=== PATIENT | female | born 1980 | race Asian ===

== ENCOUNTER → 2020-06-12 09:07 | Outpatient (CLI) | payer OTHER, SELFPAY ==
[2020-06-12 09:37] LABS: Bacteria Urine None Seen; RBC Urine None Seen (0-5/HPF)
[2020-06-12 10:40] LABS: Hemoglobin A1C% w Est Avg Glu 5.3 % (4.0-6.0)
[2020-06-12 10:59] LABS: Appearance Urine UA CLEAR; Bilirubin Urine UA NEGATIVE (NEGATIVE); Color Urine UA YELLOW; Glucose Urine UA NEGATIVE (Negative); Ketones Urine UA NEGATIVE (NEGATIVE); Leukocyte Esterase Urine UA TRACE (NEGATIVE); Nitrite Urine UA NEGATIVE (Negative); Occult Blood Urine UA NEGATIVE (Negative); Protein Urine UA NEGATIVE (Negative); Specific Gravity Urine UA 1.015 (1.000-1.035); Urobilinogen Urine UA 0.2 E.U./dL (0.2)
[2020-06-12 11:02] LABS: Alanine Aminotransferase 11 IU/L (<35); Albumin 4.5 g/dL (3.5-5.0); Albumin Globulin Ratio 1.5 (1.0-2.8); Alkaline Phosphatase 46 U/L (38-126); Aspartate Aminotransferase 24 IU/L (14-36); BUN Creatinine Ratio 14.5 (6-22); Blood Urea Nitrogen 8 mg/dL (7-17); Calcium 9.3 mg/dL (8.4-10.2); Carbon Dioxide 25 mmol/L (22-32); Chloride 107 mmol/L (98-107); Cholesterol 183 mg/dL (140-199); Estimated Glomerular Filt Rate > 60.0 mL/min (>60); Glucose 84 mg/dL (70-100); HDL Cholesterol 63 mg/dL (40-60); HEMOLYSIS < 15 (0-50); LDL Cholesterol Calculated 105 mg/dL (<100); Sodium 139 mmol/L (137-145); Total Protein 7.5 g/dL (6.3-8.2); Triglycerides 77 mg/dL (35-150)
[2020-06-12 11:08] LABS: pH Urine UA 6.5 (4.5-8.0)
[2020-06-12 11:09] LABS: Culture Indicated Urine Cult Not Indicated; Mucus Urine 1+ (Negative); Squamous Epithelial Cell Urine 5-10 /HPF (0-5/HPF); WBC Urine 0-1/HPF (0-5/HPF)
== END ==
PROVIDERS: PCP Family Medicine; Referring Provider Family Medicine; Visit Provider Family Medicine
DX: Z00.01 Encounter for general adult medical examination with abnormal findings (principal); N94.6 Dysmenorrhea, unspecified
CPT/HCPCS: 36415; 80053; 80061; 81001; 83036

== ENCOUNTER → 2020-06-21 14:08 | Outpatient (CLI) | payer OTHER, SELFPAY ==
[2020-06-21 14:12] LABS: Bacteria Urine None Seen
[2020-06-21 15:21] LABS: Appearance Urine UA CLEAR; Bilirubin Urine UA NEGATIVE (NEGATIVE); Color Urine UA YELLOW; Glucose Urine UA NEGATIVE (Negative); Ketones Urine UA NEGATIVE (NEGATIVE); Leukocyte Esterase Urine UA NEGATIVE (NEGATIVE); Nitrite Urine UA NEGATIVE (Negative); Occult Blood Urine UA NEGATIVE (Negative); Protein Urine UA NEGATIVE (Negative); Specific Gravity Urine UA <=1.005 (1.000-1.035); Urobilinogen Urine UA 0.2 E.U./dL (0.2)
[2020-06-21 15:48] LABS: pH Urine UA 5.5 (4.5-8.0)
[2020-06-21 15:54] LABS: Culture Indicated Urine Cult Not Indicated; RBC Urine 0-1/HPF (0-5/HPF); Squamous Epithelial Cell Urine 0-1 /HPF (0-5/HPF); WBC Urine 0-1/HPF (0-5/HPF)
[2020-06-21 17:42] LABS: Bilirubin Total 0.7 mg/dL (0.2-1.3)
== END ==
PROVIDERS: PCP Family Medicine; Referring Provider Family Medicine; Visit Provider Family Medicine
DX: N94.6 Dysmenorrhea, unspecified (principal)
CPT/HCPCS: 36415; 81001; 82247; 82248

== ENCOUNTER → 2020-10-16 11:09 | Outpatient (CLI) | payer OTHER, SELFPAY ==
--- NOTE | 2020-10-16 11:10 | DI.US.S_ITS ---
PROCEDURE: US OB <= 14 WEEKS FETUS INDICATIONS: Initial US for Dating and Viability please OUTSIDE/PRIOR DATING DATA: Last menstrual period (LMP): 08/14/2020 LMP-based estimated date of delivery (GUY): 05/21/2021. First dating scan (date and location): 10/16/2020. Estimated date of delivery (GUY) from first dating scan: 05/25/2021. TECHNIQUE: Real-time scanning was performed of the fetus and maternal pelvic organs, with image documentation. Endovaginal scanning was also performed to better visualize the fetus and maternal ovaries. COMPARISON: None. FINDINGS: Embryo: [place]-rump length measures 1.9 cm corresponding to 8 weeks 3 days. Heart rate measures 175 beats per minute. Measurement variability in dating: +/- 4 weeks by LMP, +/- 7 days by mean sac diameter (use before 6 weeks gestation if crown-rump length not able to be measured), +/- 5 days by crown-rump length (up to 8 weeks 6 days gestation), +/- 7 days by crown-rump length (up to 13 weeks 6 days gestation). Maternal organs: Ovaries within normal limits . IMPRESSION: 8 week 3 day single living IUP. Dictated by: Tye Veliz RRA Interpreted: Martin Jones MD on 10/16/2020 at 17:13 Transcribed by: ADONIS on 10/16/2020 at 17:14 Approved by: Martin Jones M.D. on 10/16/2020 at 17:28
== END ==
PROVIDERS: PCP Family Medicine; Referring Provider Family Medicine; Visit Provider Family Medicine
DX: Z34.01 Encounter for supervision of normal first pregnancy, first trimester (principal); Z3A.08 8 weeks gestation of pregnancy
CPT/HCPCS: 76801

== ENCOUNTER → 2020-11-06 13:55 | Outpatient (CLI) | payer OTHER, SELFPAY ==
[2020-11-06 14:28] LABS: Add Manual Diff / Slide Review NO; Basophils Absolute Auto 0 /uL (0-100); Basophils Percent Auto 0.2 % (0-2); Eosinophils Absolute Auto 200 /uL (0-450); Eosinophils Percent Auto 2.7 % (2-4); Hematocrit 34.8 % (36-46); Hemoglobin 12.2 g/dL (12.0-16.0); Lymphocytes Absolute Auto 1800 /uL (1100-4500); Lymphocytes Percent Auto 25.1 % (25-40); Mean Corpuscular HGB Conc 35.1 % (30-36); Mean Corpuscular Hemoglobin 31.4 PG (26-34); Mean Corpuscular Volume 89.3 fL (80-100); Monocytes Absolute Auto 600 /uL (0-900); Monocytes Percent Auto 8.7 % (3-14); Neutrophils Absolute Auto 4600 /uL (1500-7000); Neutrophils Percent Auto 63.3 % (50-75); Platelet Count 310 X10^3/uL (150-400); Red Cell Distribution Width 12.3 % (11.6-14.8); White Blood Cell Count 7.3 X10^3/uL (4.5-11.0)
[2020-11-06 16:33] LABS: Appearance Urine UA CLEAR; Bilirubin Urine UA NEGATIVE (NEGATIVE); Color Urine UA YELLOW; Glucose Urine UA NEGATIVE (Negative); Ketones Urine UA NEGATIVE (NEGATIVE); Leukocyte Esterase Urine UA NEGATIVE (NEGATIVE); Nitrite Urine UA NEGATIVE (Negative); Occult Blood Urine UA NEGATIVE (Negative); Protein Urine UA NEGATIVE (Negative); Urobilinogen Urine UA 0.2 E.U./dL (0.2)
[2020-11-07 07:28] LABS: RPR Screen Non Reactive (Non Reactive)
[2020-11-07 08:42] LABS: Varicella IgG Antibody 385 index (Immune >165)
[2020-11-08 20:57] LABS: Hepatitis B Surface Antigen NEGATIVE s/c (NEGATIVE); Rubella Antibody IgG 48.5 IU/mL (>15)
[2020-11-08 21:09] LABS: HIV 1 & 2 Ab/Ag 4th Gen Combo NEGATIVE (NEGATIVE); Hep C Virus Ab w/Reflex Quant NEGATIVE s/c (NEGATIVE)
== END ==
PROVIDERS: PCP Family Medicine; Referring Provider Family Medicine; Visit Provider Family Medicine
DX: Z3A.11 11 weeks gestation of pregnancy (principal); O09.519 Supervision of elderly primigravida, unspecified trimester
CPT/HCPCS: 36415; 80055; 81003; 81420; 86787; 86803; 86850; 86900; 86901; 87077; 87086; 87389

== ENCOUNTER → 2020-12-13 15:18 | Outpatient (CLI) | payer OTHER, MEDICAID, SELFPAY ==
[2020-12-15 19:18] LABS: AFP Value 39.6 ng/mL (.); Gest Age on Col Date 17.3 weeks (.); Gestational Age Ultrasound (.); Insulin Dep Diabetes No (.); OSBR Risk 1IN 10000 (.); Results Report (.); Test Results *Screen Negative* (.)
== END ==
PROVIDERS: PCP Family Medicine; Referring Provider Family Medicine; Visit Provider Family Medicine
DX: Z34.90 Encounter for supervision of normal pregnancy, unspecified, unspecified trimester (principal); Z3A.17 17 weeks gestation of pregnancy
CPT/HCPCS: 36415; 82105

== ENCOUNTER → 2021-01-03 14:07 | Outpatient (CLI) | payer OTHER, MEDICAID, SELFPAY ==
--- NOTE | 2021-01-03 14:08 | DI.US.S_ITS ---
PROCEDURE: US OB >= 14 WEEKS FETUS INDICATIONS: ANATOMY SCAN OUTSIDE/PRIOR DATING DATA: Last menstrual period (LMP): 08/14/2020 . LMP-based estimated date of delivery (GUY): 05/21/2021 . First dating scan (date and location): 10/16/2020 . Estimated date of delivery (GUY) from first dating scan: 05/25/2021 . TECHNIQUE: Real-time scanning was performed of the fetus, with image documentation and biometric measurements. Endovaginal scanning: None COMPARISON: None. FINDINGS: General: A single living intrauterine gestation is present. Presentation: Variable, breech. Placenta: Placental position is anterior , without previa. Amniotic fluid index: 15.6 cm, normal range is 5-24 cm. heart rate: 155 beats per minute. Maternal cervical canal: 3.1 cm long. Normal lower limit is 2.5 cm. biometrics: Biparietal diameter: 4.7 cm, 20 week 2 day Head circumference: 17.3 cm, 19 week 6 day Abdominal circumference: 14.1 cm, 19 week 3 day Femur length: 3.1 cm, 19 week 3 day Estimated gestational age from initial scan: 19 week 5 day Composite gestational age from present scan: 19 week 5 day Estimated weight and percentile: 297, 34th percentile Measurement variability for biometric dating: +/- 7 days from 14 weeks to 15 weeks 6 days gestation, +/- 10 days from 16 weeks to 21 weeks 6 days gestation, +/- 2 weeks from 22 weeks to 27 weeks 6 days gestation, +/- 3 weeks for 28 weeks gestation or later. weight reference: 4500 g or EFW >90/95% is considered macrosomia or large for gestational age. EFW <10% is small for gestational age. EFW 5% or less is considered intra-uterine growth restriction. Anatomic survey: Neuro: Ventricles are non-dilated at less than 10 mm. Cisterna magna is normal at 3-11 mm. Cerebellum is normal in size and morphology. Nuchal skin fold: Normal at less than 6 mm between 14-21 weeks gestational age. Face: Nose and lips, facial profile are normal. Spine: No evidence for spina bifida. Heart: 4-chambered heart is present, with normal ventricular outflow tracts. Diaphragm: Diaphragm is intact. Stomach: Left-sided stomach is present. Kidneys: No hydronephrosis. Normal is less than 5 mm in 2nd trimester, less than 7 mm in 3rd trimester. Cord: 3-vessel cord has orthotopic insertion. Bladder: Normal in size. Extremities: All 4 extremities identified. IMPRESSION: Single live intrauterine consistent with 19 week 5 day gestation by ultrasound Approved by: Magnus Carmen M.D. on 01/08/2021 at 14:28
== END ==
PROVIDERS: PCP Family Medicine; Referring Provider Family Medicine; Visit Provider Family Medicine
DX: Z36.89 Encounter for other specified antenatal screening (principal); Z3A.19 19 weeks gestation of pregnancy
CPT/HCPCS: 76811

== ENCOUNTER → 2021-02-14 10:01 | Outpatient (CLI) | payer OTHER, MEDICAID, SELFPAY ==
[2021-02-14 12:32] LABS: Hematocrit 36.4 % (36-46); Hemoglobin 12.5 g/dL (12.0-16.0)
[2021-02-14 13:24] LABS: GTT (PREG) 1 Hour PP 50gm Dose 124 mg/dL (76-139)
== END ==
PROVIDERS: PCP Family Medicine; Referring Provider Family Medicine; Visit Provider Family Medicine
DX: Z3A.26 26 weeks gestation of pregnancy (principal)
CPT/HCPCS: 36415; 82950; 85014; 85018

== ENCOUNTER → 2021-04-30 12:09 | Outpatient (CLI) | payer OTHER, MEDICAID, SELFPAY ==
--- NOTE | 2021-04-30 12:10 | DI.US.S_ITS ---
PROCEDURE: US OB LIMITED INDICATIONS: advanced maternal age, growth, NOEL OUTSIDE/PRIOR DATING DATA: Last menstrual period (LMP): 08/14/2020 LMP-based estimated date of delivery (GUY): 05/21/2021. First dating scan (date and location): 10/17/2011. Estimated date of delivery (GUY) from first dating scan: 05/25/2021. The calculations are made using the ultrasound GUY of 05/25/2021. TECHNIQUE: Real-time scanning was performed of the fetus, with image documentation and biometric measurements. Endovaginal scanning: No COMPARISON: [facility], OB >= 14 WEEKS FETUS, 01/03/2021, 13:25. FINDINGS: General: A single living intrauterine gestation is present. Presentation: Vertex. Placenta: Placental position is anterior , without previa. Amniotic fluid index: 10.0 cm, normal range is 5-24 cm. Single deepest vertical pocket is not evaluated heart rate: 139 beats per minute. Maternal cervical canal: Not well seen. biometrics: Biparietal diameter: 35 weeks 4 days Head circumference: 35 weeks 1 day Abdominal circumference: 32 weeks 3 days Femur length: 34 weeks 4 days Clinically estimated gestational age: 36 weeks 3 days Composite gestational age from present scan: 34 weeks 3 days Estimated weight and percentile: 2032 g; 3rd percentile Other: Not applicable. IMPRESSION: 1. Single living IUP redemonstrated and interval growth is less than expected with the estimated weight at the 3rd percentile. Intrauterine growth restriction cannot be excluded and close clinical correlation and follow-up is recommended. We strive to produce accurate, complete, and clear reports of imaging services. To assist us in improving patient care, this report was composed using standard report templates and voice recognition software. Therefore, it may contain abnormal punctuation, insertions and/or omissions. Occasional wrong-word or sound-alike substitutions may occur. Though we review the report and make efforts to correct it, we do recommend that the report be read carefully in proper context to recognize any text inaccuracies. Dictated by: Tye ALFRED Interpreted: Carolina Gaytan MD on 04/30/2021 at 13:17 Transcribed by: HOLLY on 04/30/2021 at 13:20 Approved by: Carolina Gaytan M.D. on 04/30/2021 at 16:46
== END ==
PROVIDERS: PCP Family Medicine; Referring Provider Family Medicine; Visit Provider Family Medicine
DX: O09.513 Supervision of elderly primigravida, third trimester (principal); Z36.89 Encounter for other specified antenatal screening; Z3A.34 34 weeks gestation of pregnancy
CPT/HCPCS: 76815

== ENCOUNTER 2021-05-01 10:04 | Outpatient (CLI) | payer OTHER, MEDICAID, SELFPAY ==
--- NOTE | 2021-05-01 | DI.US.S_ITS ---
PROCEDURE: US OB BIOPHYSICAL PROFILE INDICATIONS: GROWTH RESTRICTION OUTSIDE/PRIOR DATING DATA: Last menstrual period (LMP): 08/14/2020. LMP-based estimated date of delivery (UGY): 05/21/2021 First dating scan (date and location): 10/16/2020 Estimated date of delivery (GUY) from first dating scan: 05/25/2021. The calculations are made using the study generated GUY of 05/25/2021. TECHNIQUE: Real-time scanning was performed of the fetus for biophysical profile, with image documentation. Color and pulse Doppler interrogation was also performed of the umbilical artery near its insertion into the placenta. COMPARISON: [facility], OB LIMITED, 04/30/2021, 12:19. FINDINGS: General: A single living intrauterine gestation is present. Presentation: Vertex. Placenta: Placental position is anterior,, without previa. Amniotic fluid index: 10.6 cm, normal range is 5-24 cm. Single deepest vertical pocket is 3.2 cm. heart rate: 149 beats per minute. Maternal cervical canal: Not well seen. Abdominal circumference is 29.5 cm on today's study with estimated gestational age of 33 weeks, 3 days. Estimated gestational age from initial scan: 36 weeks, 4 days Biophysical profile: Tone: 2 points. Movement: 2 points. Respiration: 2 points. Largest pocket of fluid: 2 points. Umbilical artery Doppler: 2.3, 2.4, 2.3 IMPRESSION: 1. Single live intrauterine with fetus in vertex presentation. heart rate is 149 beats per minute. Normal amount of amniotic fluid. 2. Estimated gestational age based on abdominal circumference is 33 weeks, 3 days on the current study. Estimated gestational age from initial scan is 36 weeks, 4 days. 3. Normal biophysical profile score of 8/8. Normal umbilical artery S/D ratio. We strive to produce accurate, complete, and clear reports of imaging services. To assist us in improving patient care, this report was composed using standard report templates and voice recognition software. Therefore, it may contain abnormal punctuation, insertions and/or omissions. Occasional wrong-word or sound-alike substitutions may occur. Though we review the report and make efforts to correct it, we do recommend that the report be read carefully in proper context to recognize any text inaccuracies. Dictated by: Martin Jones M.D. on 05/01/2021 at 12:29 Approved by: Martin Jones M.D. on 05/01/2021 at 12:35
--- NOTE | 2021-05-01 12:40 | PM.OBTRLD ---
Visit Information Visit Information Date of evaluation: 05/01/21 Primary OB Provider: Mary Louise Reason for Evaluation: Yes non-stress test non-stress test reason: other (IUGR) Comments/Additional reasons for admission: 41-year-old at 37 weeks and 1 day gestation by LMP confirmed with early ultrasound. Growth scan yesterday was significant for estimated weight at the third percentile with NOEL of 10. Patient was unable to be reached last night come in to the center for monitoring but was contacted this morning. Denies contractions, leaking or bleeding and reports good movement. has been uncomplicated to date. Vital Signs Vital Signs: Temperature 36.0? blood pressure 134/88, repeat blood pressure 131/84 heart rate 83 PFSH Medical History Allergic rhinitis AMA (advanced maternal age) primigravida 35+ Atopic dermatitis Chicken pox (~1988) Compression fracture (~2010) Eczema Nummular eczema (~1997) Surgical History Anesthesia History of oral surgery (~1988) [place] teeth removed (~1995) Family History Father Hypertension Hyperlipidemia Mother Breast cancer Cancer History of prediabetes Sister Mental health problem ASD (atrial septal defect) Bipolar 1 disorder Sister Mental health problem Depression Grandfather Lung cancer Cancer Heavy smoker Grandmother Alzheimer's disease Grandfather Kidney failure Grandmother Primary generalized (osteo)arthritis Social History marital status: household members: spouse lives independently: Yes pets and animals: No education level: master's degree (Law Degree and MA in Teaching) occupational status: unemployed current occupational exposures/hazards: No special chela needs: No Smoking Status: Never smoker second hand exposure: No alcohol intake: former (pre- : rare use ) substance use type: does not use Evaluation Evaluation Baseline heart rate: 135 Variability: Moderate (11-25) monitor accelerations: Present Monitor Decelerations: Absent Contraction Frequency (minutes): 5 Uterine Contraction Intensity: Mild Category of Tracing: Reactive Diagnosis, Plan/Disposition Final Diagnosis (1) 37 weeks gestation of : Status: Acute (2) IUGR (intrauterine growth restriction): Status: Acute Plan/Disposition Plan: 41-year-old at 37 weeks and 1 day gestation by LMP confirmed with first-trimester ultrasound. has been uncomplicated. A growth ultrasound was ordered due to advanced maternal age and returned with estimated weight at the third percentile yesterday. Abdominal circumference measured at 32 weeks and 3 days. Today NST is reactive, BPP 8/8, NOEL 10.6 and umbilical artery Dopplers normal. Repeat abdominal circumference was 33 weeks and 3 days gestation, a week different than yesterday. Using today's abdominal circumference with the remainder of yesterday's growth measurements, estimated weight is now at the 5.7th percentile. Discussed case with Dr. Medrano who recommended repeat NST, BPP and UA dopplers in a week and delivery by 39 weeks. Patient counseled on kick counts and to call/come in for decreased movements. She will follow-up in clinic tomorrow as scheduled. OB Disposition: home
== END 2021-05-01 11:55 | disposition home or self-care (01) ==
LOC: LABOR 11:35 → OB 05-02 13:27
PROVIDERS: PCP Family Medicine; Referring Provider Family Medicine; Visit Provider Family Medicine
DX: O36.5930 Maternal care for other known or suspected poor fetal growth, third trimester, not applicable or unspecified (principal); O09.513 Supervision of elderly primigravida, third trimester; Z3A.37 37 weeks gestation of pregnancy
CPT/HCPCS: 59025; 76819; G0378; G0379

== ENCOUNTER → 2021-05-02 13:41 | Outpatient (CLI) | payer OTHER, MEDICAID, SELFPAY ==
[2021-05-03 10:29] LABS: Strep Grp B PCR NEG for Grp B Strep
== END ==
PROVIDERS: PCP Family Medicine; Visit Provider Family Medicine
DX: Z3A.37 37 weeks gestation of pregnancy (principal)
CPT/HCPCS: 87653

== ENCOUNTER 2021-05-06 11:23 | Outpatient (CLI) | payer OTHER, MEDICAID, SELFPAY ==
--- NOTE | 2021-05-06 | DI.US.S_ITS ---
PROCEDURE: US OB LIMITED INDICATIONS: IUGR OUTSIDE/PRIOR DATING DATA: Last menstrual period (LMP): 08/14/2020. LMP-based estimated date of delivery (GUY): 05/21/2021. First dating scan (date and location): 10/16/2020 at . Estimated date of delivery (GUY) from first dating scan: 05/25/2021. The calculations are made using the ultrasound GUY of 05/25/2021. TECHNIQUE: Real-time scanning was performed of the fetuses, with image documentation and biometric measurements. Endovaginal scanning: Not performed. COMPARISON: [facility], OB <= 14 WEEKS FETUS, 10/16/2020, 10:46. [facility], OB >= 14 WEEKS FETUS, 01/03/2021, 13:25. [facility], OB BIOPHYSICAL PROFILE, 05/01/2021, 10:56. [facility], OB LIMITED, 04/30/2021, 12:19. FINDINGS: General: There is a single living IUP in vertex presentation. Placenta is anterior without previa. NOEL 12.1 cm with the largest pocket 4.8 cm. heart rate is 149 BPM. biometrics: Biparietal diameter: 36 weeks 0 day Head circumference: 36 weeks 3 days Abdominal circumference: 35 weeks 6 days Femur length: 35 weeks 6 days The estimated gestational age based on initial ultrasound: 37 weeks 2 days Composite gestational age from present scan: 36 weeks 0 day. Estimated weight and percentile: 2816 gm; 24% for gestation age. Biophysical Profile: Tone: 2 points. Movement: 2 points. Respiration: 2 points. Largest pocket of fluid: 2 points. Umbilical artery Doppler: S/D ratio 2.3-3.1. IMPRESSION: 1. A single living intrauterine gestation with an estimated gestational age of 36 weeks 0 day (37 weeks 2 days based on the initial ultrasound). The estimated weight is at the 24th percentile. 2. Normal cord Doppler ultrasound. 3. Normal NOEL. Measurement variability for biometric dating: +/- 7 days from 14 weeks to 15 weeks 6 days gestation, +/- 10 days from 16 weeks to 21 weeks 6 days gestation, +/- 2 weeks from 22 weeks to 27 weeks 6 days gestation, +/- 3 weeks for 28 weeks gestation or later. weight reference: 4500 g or EFW >90/95% is considered macrosomia or large for gestational age. EFW <10% is small for gestational age. EFW 5% or less is considered intra-uterine growth restriction. We strive to produce accurate, complete, and clear reports of imaging services. To assist us in improving patient care, this report was composed using standard report templates and voice recognition software. Therefore, it may contain abnormal punctuation, insertions and/or omissions. Occasional wrong-word or sound-alike substitutions may occur. Though we review the report and make efforts to correct it, we do recommend that the report be read carefully in proper context to recognize any text inaccuracies. Dictated by: Carolina Gaytan M.D. on 05/06/2021 at 13:40 Approved by: Carolina Gaytan M.D. on 05/06/2021 at 13:50
[2021-05-06 11:40] VITALS: BP 133/84; PULSE 84; RESP 20; TEMP 36.1
--- NOTE | 2021-05-06 12:11 | P.TNLD_ITS ---
Visit Information Visit Information Date of evaluation: 05/06/21 Primary OB Provider: Mary Louise Reason for Evaluation: Yes non-stress test non-stress test reason: other (IUGR) Vital Signs Vital Signs: Vital Signs - 8 hr 05/06/21 11:40 Temperature 97 F L Pulse Rate 84 Respiratory Rate 20 Blood Pressure 133/84 [facility] Medical History Advanced maternal age (AMA) in Allergic rhinitis AMA (advanced maternal age) primigravida 35+ Atopic dermatitis Chicken pox (~1988) Compression fracture (~2010) Eczema Nummular eczema (~1997) Surgical History Anesthesia History of oral surgery (~1988) [place] teeth removed (~1995) Family History Father Hypertension Hyperlipidemia Mother Breast cancer Cancer History of prediabetes Sister Mental health problem ASD (atrial septal defect) Bipolar 1 disorder Sister Mental health problem Depression Grandfather Lung cancer Cancer Heavy smoker Grandmother Alzheimer's disease Grandfather Kidney failure Grandmother Primary generalized (osteo)arthritis Social History marital status: household members: spouse lives independently: Yes pets and animals: No education level: master's degree (Law Degree and MA in Teaching) occupational status: unemployed current occupational exposures/hazards: No special chela needs: No Smoking Status: Never smoker second hand exposure: No alcohol intake: former (pre- : rare use ) substance use type: does not use Exam Vital Signs (past 8 hours): - 05/06/21 11:40 Temperature 97 F L Pulse Rate 84 Respiratory Rate 20 Blood Pressure 133/84 Evaluation Evaluation Baseline heart rate: 140 Variability: Moderate (11-25) monitor accelerations: Present Monitor Decelerations: Absent Uterine Contraction Intensity: Mild Category of Tracing: Reactive Diagnosis, Plan/Disposition Final Diagnosis (1) 37 weeks gestation of : Status: Acute (2) Advanced maternal age (AMA) in : Status: Acute (3) IUGR (intrauterine growth restriction): Status: Acute Plan/Disposition Plan: 41-year-old at 37 weeks and 6 days gestation here for NST due to concern for IUGR. NST reactive. BPP today was 8/8 an estimated weight now 24th percentile. Umbilical artery Dopplers normal. She will follow-up in clinic as scheduled in 3 days. OB Disposition: home
== END 2021-05-06 11:50 | disposition home or self-care (01) ==
LOC: LABOR 11:55 → OB 05-08 11:41
PROVIDERS: PCP Family Medicine; Referring Provider Family Medicine; Visit Provider Family Medicine
DX: O36.5930 Maternal care for other known or suspected poor fetal growth, third trimester, not applicable or unspecified (principal); O09.513 Supervision of elderly primigravida, third trimester; Z3A.37 37 weeks gestation of pregnancy
CPT/HCPCS: 59025; 76815; 76819; G0378; G0379

== ENCOUNTER 2021-05-09 14:08 | Inpatient (IN) | payer OTHER, MEDICAID, SELFPAY ==
[2021-05-09 15:16] LABS: Add Manual Diff / Slide Review NO; Basophils Absolute Auto 0 /uL (0-100); Basophils Percent Auto 0.4 % (0-2); Eosinophils Absolute Auto 100 /uL (0-450); Eosinophils Percent Auto 1.3 % (2-4); Hemoglobin 12.3 g/dL (12.0-16.0); Lymphocytes Absolute Auto 1900 /uL (1100-4500); Lymphocytes Percent Auto 26.5 % (25-40); Mean Corpuscular HGB Conc 34.2 % (30-36); Mean Corpuscular Hemoglobin 30.5 PG (26-34); Mean Corpuscular Volume 89.2 fL (80-100); Monocytes Absolute Auto 700 /uL (0-900); Monocytes Percent Auto 9.5 % (3-14); Neutrophils Absolute Auto 4500 /uL (1500-7000); Neutrophils Percent Auto 62.3 % (50-75); Platelet Count 310 X10^3/uL (150-400); Red Blood Cell Count 4.04 X10^6/uL (4.0-5.2); Red Cell Distribution Width 12.6 % (11.6-14.8); White Blood Cell Count 7.3 X10^3/uL (4.5-11.0)
[2021-05-09 15:27] LABS: Aspartate Aminotransferase 27 IU/L (14-36); BUN Creatinine Ratio 15.4 (6-22); Blood Urea Nitrogen 8 mg/dL (7-17); Estimated Glomerular Filt Rate > 60.0 mL/min (>60); Uric Acid 4.1 mg/dL (2.5-6.2)
--- NOTE | 2021-05-09 15:32 | PM.OBHP.IH.1 ---
OB HPI Date/Time Date of admission: 05/09/21 Date Patient Seen: 05/09/21 History of Present Condition Chief complaint: NST GUY Calculator Estimated Delivery Date Method Current WG Current Estimate 05/21/21 LMP (Certain) 38w 2d Other Estimates 05/25/21 Ultrasound #1 37w 5d : 1 Para: 0 Narrative: Patient is a 41-year-old at 38 weeks and 2 days by LMP confirmed by first trimester ultrasound. She was seen in clinic today and sent to the center for preeclampsia workup due to elevated blood pressures. While in the center spontaneous rupture membranes occurred with clear fluid and patient progressed into active labor. Workup was negative for preeclampsia and blood pressures came down spontaneously. has been uncomplicated with the exception of concern for IUGR at 36 weeks with estimated weight at the third percentile. Repeat measurements the following day were consistent with estimated weight greater than the fifth percentile. Umbilical artery Dopplers were normal as was NOEL. Follow-up ultrasound a week later gave estimated weight at the twenty-fourth percentile again with normal amniotic fluid and umbilical artery Dopplers. care: good care, initiated at week # (9), number of visits (11) and pounds weight gain (26) Dating criteria OB: LMP confirmed by 1st trimester US Ultrasounds: normal 1st trimester US and normal mid trimester US Abnormal ultrasound findings: Growth ultrasound at 36 weeks was significant for estimated weight at the third percentile initially however repeat measurements put baby above the fifth percentile. Follow-up ultrasound a week later estimated weight was twenty-fourth percentile. Obstetrical complications: none Medical complications OB: none Preadmission Labs Last OB Lab Results: Blood Type O Positive 11/06/20 14:11/06/20 Antibody Screen Negative 11/06/20 14:11/06/20 Hematocrit 36.0 % (36-46) 05/09/21 15:02 05/09/21 Hemoglobin 12.3 g/dL (12.0-16.0) 05/09/21 15:02 05/09/21 Hepatitis B Surface Antigen Negative s/c (NEGATIVE) 11/06/20 14:05 11/06/20 Hepatitis C Antibody Negative s/c (NEGATIVE) 11/06/20 14:05 11/06/20 Rubella Antibody 48.5 IU/mL (>15) 11/06/20 14:05 11/06/20 Varicella-Zoster IgG Antibody 385 index (Immune >165) 11/06/20 14:05 11/06/20 Glucose 1 Hour 124 mg/dL (76-139) 02/14/21 10:10 02/14/21 Group B Streptococcus (PCR) Neg for grp b strep 05/02/21 13:41 05/02/21 -: Urine: negative (Lactobacillus) -: PAP smear: Normal Genetic Screens: Cell-free DNA: Normal and Alpha-fetoprotein: Normal External Labs -: Urine: negative (Lactobacillus) Evaluation Evaluation Baseline heart rate: 130 Variability: Moderate (11-25) monitor accelerations: Present Monitor Decelerations: Absent Contraction Frequency (minutes): 3 Dilation (cm): 5 Effacement (%): 90 station: 0 Position of cervix: anterior [facility] Medical History Advanced maternal age (AMA) in Allergic rhinitis AMA (advanced maternal age) primigravida 35+ Atopic dermatitis Chicken pox (~1988) Compression fracture (~2010) Eczema Nummular eczema (~1997) Surgical History Anesthesia History of oral surgery (~1988) [place] teeth removed (~1995) Family History Father Hypertension Hyperlipidemia Mother Breast cancer Cancer History of prediabetes Sister Mental health problem ASD (atrial septal defect) Bipolar 1 disorder Sister Mental health problem Depression Grandfather Lung cancer Cancer Heavy smoker Grandmother Alzheimer's disease Grandfather Kidney failure Grandmother Primary generalized (osteo)arthritis Social History marital status: household members: spouse lives independently: Yes pets and animals: No education level: master's degree (Law Degree and MA in Teaching) occupational status: unemployed current occupational exposures/hazards: No special chela needs: No Smoking Status: Never smoker second hand exposure: No alcohol intake: former (pre- : rare use ) substance use type: does not use Meds Home Medications and Allergies Home Medications Medication Instructions Recorded Confirmed Type triamcinolone acetonide 0.5 % 1 applictn TOP BID PRN #[id number] gram 06/29/18 02/07/21 Rx topical cream prenat.vits,aamir,vsl-laps-eyxdh 1 tab PO DAILY 10/17/20 02/07/21 History Double Electric Breast Pump and #1 ea 03/21/21 03/21/21 Rx supplies Allergies Allergy/AdvReac Type Severity Reaction Status Date / Time No Known Drug Allergies Allergy Verified 10/17/20 10:13 OB Exam Narrative Exam Narrative: Initial blood pressures in the center were elevated in the 140s over 90s however came down to 130s over 70s without intervention HENMT Head: normal to inspection Mouth: oral mucosae normal Eyes General: appearance normal, both eyes and all related structures Resp Effort & Inspection: normal respiratory effort and able to speak in complete sentences Cardio Rate: regular rate Extremities Lower extremity: Yes normal to inspection; No edema Presentation: vertex Estimated Weight (lbs): 6 Amniotic Fluid: clear Objective Labs Result Diagrams: 05/09/21 15:02 05/09/21 15:02 Labs: Laboratory Results - last 24 hr 05/09/21 05/09/21 15:02 15:02 WBC 7.3 RBC 4.04 Hgb 12.3 Hct 36.0 MCV 89.2 MCH 30.5 MCHC 34.2 RDW 12.6 Plt Count 310 Neut % (Auto) 62.3 Lymph % (Auto) 26.5 [place] % (Auto) 9.5 Eos % (Auto) 1.3 L Baso % (Auto) 0.4 Neut # (Auto) 4500 Lymph # (Auto) 1900 [place] # (Auto) 700 Eos # (Auto) 100 Baso # (Auto) 0 BUN 8 Creatinine 0.52 Estimated GFR > 60.0 BUN/Creatinine Ratio 15.4 Uric Acid 4.1 AST 27 Assessment and Plan Assessment and Plan Assessment and Plan narrative: 41-year-old at 38 weeks and 2 days in active labor. She was sent out center from clinic due to hypertension. Labs reassuring against preeclampsia. While in triage her membranes ruptured spontaneously with clear fluid and painful contractions began shortly thereafter. GBS negative. Plan Admit for labor Patient desires natural methods for pain control and has a transit operations supervisor for support Anticipate spontaneous vaginal delivery
[2021-05-09 17:25] LABS: Add Manual Diff / Slide Review NO; Basophils Absolute Auto 0 /uL (0-100); Basophils Percent Auto 0.3 % (0-2); Eosinophils Absolute Auto 100 /uL (0-450); Eosinophils Percent Auto 1.1 % (2-4); Hematocrit 36.6 % (36-46); Hemoglobin 12.5 g/dL (12.0-16.0); Lymphocytes Absolute Auto 2500 /uL (1100-4500); Lymphocytes Percent Auto 27.6 % (25-40); Mean Corpuscular HGB Conc 34.2 % (30-36); Mean Corpuscular Hemoglobin 30.4 PG (26-34); Mean Corpuscular Volume 88.7 fL (80-100); Monocytes Absolute Auto 800 /uL (0-900); Monocytes Percent Auto 9.2 % (3-14); Neutrophils Absolute Auto 5500 /uL (1500-7000); Neutrophils Percent Auto 61.8 % (50-75); Platelet Count 330 X10^3/uL (150-400); Red Blood Cell Count 4.13 X10^6/uL (4.0-5.2); Red Cell Distribution Width 12.6 % (11.6-14.8); White Blood Cell Count 8.9 X10^3/uL (4.5-11.0)
[2021-05-09 18:21] LABS: COVID19 -Nasal RAPID Negative (Negative)
--- NOTE | 2021-05-09 19:46 | P.PCNOB_ITS ---
Labor & Delivery Delivery date: 05/09/21 Delivery monitor: external FHT (Intermittent doppler) Route of delivery: L&D Laceration Description: Perineal - 2nd Degree and Vaginal - 2nd Degree Delivery repair: chromic Estimated blood loss (mL): 300 Anesthesia Type: None Narrative: Patient is a 41-year-old at 38 weeks and 2 days who gave on 05/09/21 at 19:14. Hospital problems: 38 weeks of Gestational HTN STAGE I: Labor Spontaneous rupture of membranes occurred in the center at 15:11 with clear fluid with labor beginning shortly thereafter. Patient utilized natural methods for pain control with the help of her assistant family teacher and . She was completed at 18:03. Intermittent auscultation performed throughout stage one with FHT 130s. Stage 1 duration 2 hours and 8 minutes. STAGE II: Delivery Patient was complete and pushed for just over an hour. She went on to deliver a male . was vertex and RIAZ with a nuchal cord which was reduced. He was placed on mother's abdomen. Cord was clamped and cut after several minute delay by father. Apgars were 8 and 8. No resuscitation of the required beyond dryhing and stimulating. STAGE III: Placenta/Cord Placenta delivered at 19:20 after active management and appeared intact with a three vessel cord. Pitocin bolus given via IV after delivery of placenta. A second degree vaginal and perineal laceration was repaired in the usual fashion with 3-O vicryl after adequate anesthesia with lidocaine. Hemostasis assured. Fundus firm at umbilicus after repair. EBL: 300 mL. Needle and sponge counts were correct. The vagina was inspected and no items were left in situ. Patient was doing well with her and at bedside. Baby 1: gender: Male Presentation: vertex Position: Left Occiput Anterior Placenta delivery description: Spontaneous Cord Vessel Description: 3 Vessels and Nuchal Cord score (1 min): 8 score (5 min): 8 Plan for aftercare: Routine care
[2021-05-09] MEDS: IBUPROFEN 600 MG TABLET PO (22:41)
[2021-05-09] MEDS: DERMOPLAST SPRAY 20% 60 ML 1 SPRAY TOP (22:41)
[2021-05-10] MEDS: IBUPROFEN 600 MG TABLET PO ×2 (08:12→16:17)
[2021-05-10] MEDS: PRENATAL VIT,CALC/IRON/FOLIC 1 TABLET 1 TAB PO (08:13)
[2021-05-10] MEDS: DOCUSATE 100 MG CAPSULE PO (08:13)
[2021-05-10] MEDS: ACETAMINOPHEN 325 MG TABLET 650 MG PO ×2 (12:54→19:52)
--- NOTE | 2021-05-10 13:27 | PM.OBDS.1 ---
Discharge Providers Provider Date of admission: 05/09/21 14:08 Discharge Date: 05/10/21 Primary care physician: Gigi Freedman MD Consults: 05/10/21 19:47 Consult to Operations Supervisor Chemical [employer]aning Routine Comment: Discharge provider: Mary Louise DO Summary Time Spent with Patient Time attestation: Total time spent providing and/or coordinating discharge services: Objective Labs Result Diagrams: 05/09/21 16:05 05/09/21 15:02 Labs: Laboratory Results - last 24 hr 05/09/21 05/09/21 05/09/21 15:02 15:02 16:05 WBC 7.3 8.9 RBC 4.04 4.13 Hgb 12.3 12.5 Hct 36.0 36.6 MCV 89.2 88.7 MCH 30.5 30.4 MCHC 34.2 34.2 RDW 12.6 12.6 Plt Count 310 330 Neut % (Auto) 62.3 61.8 Lymph % (Auto) 26.5 27.6 [place] % (Auto) 9.5 9.2 Eos % (Auto) 1.3 L 1.1 L Baso % (Auto) 0.4 0.3 Neut # (Auto) 4500 5500 Lymph # (Auto) 1900 2500 [place] # (Auto) 700 800 Eos # (Auto) 100 100 Baso # (Auto) 0 0 BUN 8 Creatinine 0.52 Estimated GFR > 60.0 BUN/Creatinine Ratio 15.4 Uric Acid 4.1 AST 27 SARS-CoV-2 (PCR) Blood Type Antibody Screen 05/09/21 05/09/21 16:05 17:23 WBC RBC Hgb Hct MCV MCH MCHC RDW Plt Count Neut % (Auto) Lymph % (Auto) [place] % (Auto) Eos % (Auto) Baso % (Auto) Neut # (Auto) Lymph # (Auto) [place] # (Auto) Eos # (Auto) Baso # (Auto) BUN Creatinine Estimated GFR BUN/Creatinine Ratio Uric Acid AST SARS-CoV-2 (PCR) Negative Blood Type O Positive Antibody Screen Negative Discharge Plan Discharge orders & Medications Prescriptions: No Action (DME) [employer] Breast Pump and supplies See Rx Instructions .ROUTE .MEDSUPPLY Qty: 1 0RF Rx Instructions: Use daily as directed triamcinolone acetonide 0.5 % cream 1 applictn TOP BID PRN (Reason: eczema) Qty: 454 0RF prenat.vits,aamir,[id number] Tablet 1 tab PO DAILY 0RF Follow up/Referrals: Gigi Freedman MD [Primary Care Provider] - Discharge Data Primary Care Provider: Gigi Freedman
--- NOTE | 2021-05-10 17:36 | P.PNOB_ITS ---
Subjective - OB Subjective Patient comments: no complaints, pain well controlled, tolerating diet and flatus present baby status: doing well and nursing well [place] feeding status: exclusively breast feeding Date Patient Seen: 05/10/21 Interval history: Denies complaints. is going well without concerns in the . She is tolerating a diet, ambulating, voiding and passing flatus. Pain controlled. Vaginal bleeding is light to moderate as expected. Exam Vital Signs (past 8 hours): Temperature 98.5? blood pressure 128/65 heart rate 85 respirations 17 Narrative Exam Narrative: General: Awake and alert, no acute distress. HEENT: NCAT, EOMI, moist oral mucosa CV: Regular rate and rhythm, no murmurs, rubs or gallops Lungs: CTAB, no wheezes, rales, or rhonchi Abdomen: Soft, nontender; bowel tones active; uterus firm 1 cm below umbilicus Extremities: Warm, no edema Objective Labs Result Diagrams: 05/09/21 16:05 05/09/21 15:02 Labs: Laboratory Results - last 24 hr 05/09/21 05/09/21 16:05 17:23 SARS-CoV-2 (PCR) Negative Blood Type O Positive Antibody Screen Negative Assessment & Plan Assessment and Plan (1) Spontaneous vaginal delivery: Status: Acute (2) 38 weeks gestation of : Status: Acute Plan day: 1 plan OB: routine care Comments: 41-year-old after uncomplicated spontaneous vaginal delivery at 38 weeks. Anticipate discharge home tomorrow. Time Spent With Patient Time: Total time spent is greater than 50% in coordination of care (as documented) at patient's floor/unit and/or counseling patient: Time with patient: 15-24 minutes
[2021-05-11] MEDS: IBUPROFEN 600 MG TABLET PO (05:42)
[2021-05-11] MEDS: DOCUSATE 100 MG CAPSULE PO (08:31)
[2021-05-11] MEDS: PRENATAL VIT,CALC/IRON/FOLIC 1 TABLET 1 TAB PO (08:31)
--- NOTE | 2021-05-11 10:40 | P.DS_ITS ---
History of Present Illness History of Present Illness Date Patient Seen: 05/11/21 Time Patient Seen: 10:40 Chief complaint: L&D Narrative: This patient was admitted in labor and had an uneventful vaginal delivery. She was discharged on day 2. Discharge Providers Provider Date of admission: 05/09/21 14:08 Discharge Date: 05/11/21 Primary care physician: Gigi Freedman MD Consults: 05/10/21 19:47 Consult to Information Systems Supervisor Routine Comment: Discharge provider: Jessica Guerrero MD Summary Hospital Course Discharge Diagnosis: vaginal delivery Hospital Course: This patient was admitted in labor and had an uncomplicated vaginal delivery. She was discharged on PPD#1 with routine precautions. Status at Discharge Cognitive/behavioral status at discharge: oriented Functional status at discharge: independent ambulation Overall status at discharge: patient is back to baseline Exam Vital Signs (past 8 hours): 116/67, HR 68 Narrative Exam Narrative: Patient reports feeling well, good pain control, moderate lochia. No ENCARNACION, visual changes, chest pain, fevers, chills. Const General: cooperative, healthy appearing, comfortable and well groomed Resp Effort & Inspection: normal respiratory effort Auscultation: clear to auscultation bilaterally Cardio Rate: regular rate Rhythm: regular rhythm GI Palpation: soft and No tender Extrem General: normal to inspection Objective Labs Result Diagrams: 05/09/21 16:05 05/09/21 15:02 [facility] Medical History (Updated 05/10/21 @ 17:37 by Mary Louise DO) Advanced maternal age (AMA) in Allergic rhinitis AMA (advanced maternal age) primigravida 35+ Atopic dermatitis Chicken pox (~1988) Compression fracture (~2010) Eczema Nummular eczema (~1997) Spontaneous vaginal delivery Surgical History Anesthesia History of oral surgery (~1988) [place] teeth removed (~1995) Family History Father Hypertension Hyperlipidemia Mother Breast cancer Cancer History of prediabetes Sister Mental health problem ASD (atrial septal defect) Bipolar 1 disorder Sister Mental health problem Depression Grandfather Lung cancer Cancer Heavy smoker Grandmother Alzheimer's disease Grandfather Kidney failure Grandmother Primary generalized (osteo)arthritis Social History marital status: household members: spouse lives independently: Yes pets and animals: No education level: master's degree (Law Degree and MA in Teaching) occupational status: unemployed current occupational exposures/hazards: No special chela needs: No Smoking Status: Never smoker second hand exposure: No alcohol intake: former (pre- : rare use ) substance use type: does not use Discharge Plan Discharge Plan Patient Disposition: Home Discharge orders & Medications Prescriptions: Continued (DME) [employer] Breast Pump and supplies See Rx Instructions .ROUTE .MEDSUPPLY Qty: 1 0RF Rx Instructions: Use daily as directed triamcinolone acetonide 0.5 % cream 1 applictn TOP BID PRN (Reason: eczema) Qty: 454 0RF prenat.vits,aamir,[id number] Tablet 1 tab PO DAILY 0RF Follow up/Referrals: Gigi Freedman MD [Primary Care Provider] - Mary Louise DO [Physician] - 6 Weeks (6 weeks for check) Diet/Activity/Treatments Diet: Regular Skin/Wound/Dressing Care Report to your healthcare provider any signs of infection, such as:: chills, fever, night sweats, increased pain, unusual drainage and unusual redness Visit Report/Discharge Packet Instructions: DI for Labor and Delivery, Vaginal Discharge Data Primary Care Provider: Gigi Freedman
[2021-05-11 10:56] VITALS: BP 116/67; PULSE 68; RESP 18; TEMP 36.9
== END 2021-05-11 11:29 | disposition home or self-care (01) | DRG 560 ==
PROVIDERS: Admitting Provider Family Medicine; PCP Family Medicine; Referring Provider Family Medicine; Visit Provider Family Medicine
DX: O13.4 Gestational [pregnancy-induced] hypertension without significant proteinuria, complicating childbirth (principal); O60.14X0 Preterm labor third trimester with preterm delivery third trimester, not applicable or unspecified; Z3A.38 38 weeks gestation of pregnancy; Z37.0 Single live birth; O70.1 Second degree perineal laceration during delivery; O69.81X0 Labor and delivery complicated by cord around neck, without compression, not applicable or unspecified; Z20.822 Contact with and (suspected) exposure to COVID-19
CPT/HCPCS: 36415; 59050; 59409; 84450; 84550; 85025; 86850; 86900; 86901; 87635; C9803; G0379

== ENCOUNTER → 2022-01-04 07:47 | Outpatient (CLI) | payer OTHER, MEDICAID, SELFPAY | PROVIDERS: PCP Family Medicine; Visit Provider Physician Assistant | DX: R30.0 Dysuria (principal) | CPT/HCPCS: 81002; 87077; 87086; 87186 ==

== ENCOUNTER → 2023-08-27 12:31 | Outpatient (CLI) | payer OTHER, SELFPAY ==
[2023-08-27 14:22] LABS: Pregnancy Test Serum,Qual Negative (Negative)
== END ==
PROVIDERS: PCP Family Medicine; Referring Provider Family Medicine; Visit Provider Family Medicine
DX: N92.6 Irregular menstruation, unspecified (principal)
CPT/HCPCS: 36415; 84703

== ENCOUNTER → 2025-04-15 07:42 | Outpatient (CLI) | payer OTHER, SELFPAY ==
--- NOTE | 2025-04-15 07:46 | DI.MG.S_ITS ---
MM screening mammo BI: 04/15/2025. BI-RADS: 1 CLINICAL: 45-year old female for bilateral screening mammogram. Tyrer-Cuzick lifetime risk of 24.3%. Current reported family history of breast cancer: mother. PRIOR EXAMS: None. This is a baseline mammogram. MAMMOGRAPHY TECHNIQUE: 2D and 3D (tomosynthesis) digital mammographic views obtained, with additional images as needed for full coverage. Current study was also evaluated with a Computer Aided Detection (CAD) system. DENSITY C. The breasts are heterogeneously dense, which may obscure small masses. MAMMOGRAPHY FINDINGS Bilateral: No suspicious mass, asymmetry, microcalcification, or other abnormality seen. IMPRESSION: * No evidence of malignancy. RECOMMENDATIONS Bilateral * According to the Tyrer-Cuzick Risk Assessment Model, based on the information provided your patient has a greater than 20% lifetime risk for developing breast cancer. Consider supplemental screening with breast MRI and participation in a high risk screening program. * Annual screening mammography. OVERALL ASSESSMENT CATEGORY BI-RADS-1: Negative. [employer] recommends annual screening mammography beginning at age 40 for women with average risk of breast cancer. ELECTRONICALLY SIGNED: Renae Haley M.D. on 04/17/2025 at 09:18:22 AM PT Interpreting Station ID: [id number]
== END ==
PROVIDERS: PCP Family Medicine; Referring Provider Family Medicine; Visit Provider Family Medicine
DX: Z12.31 Encounter for screening mammogram for malignant neoplasm of breast (principal); R92.333 Mammographic heterogeneous density, bilateral breasts; Z80.3 Family history of malignant neoplasm of breast
CPT/HCPCS: 77063; 77067